=== PATIENT | male | born 1980 | race American Indian/Alaskan Native ===

== ENCOUNTER 2020-07-21 05:13 | Observation (INO) | payer OTHER ==
[2020-07-21] MEDS ORDERED: ONDANSETRON 4 MG/2 ML INJ ONE (05:27)
[2020-07-21] MEDS ORDERED: ONDANSETRON 4 MG/2 ML INJ IV ONE (05:31)
[2020-07-21] MEDS ORDERED: DEXTROSE 50% IN WATER (25GM) 50 ML SYRINGE IV ONE ×2 (06:09→07:30)
--- NOTE | 2020-07-21 06:36 | Emergency Department Report ---
ED General Adult HPI - General Chief complaint: Hypoglycemia Stated complaint: HYPOGLYCEMIA Time Seen by Provider: 07/21/20 06:08 Source: patient, EMS Mode of arrival: Stretcher Limitations: No Limitations - History of Present Illness Initial comments: Patient is a 40-year-old male with a past medical history of hypertension, diabetes and end-stage renal disease who is presenting with hypoglycemia. Patient gets dialysis on Wednesday and Wednesday. Patient blood glucose was 13 at his home. Patient had lost consciousness. Patient does take long-acting insulin. Patient was given 2 A of D50 prior to his arrival medicine glucose is still 40 at the time of my exam. Patient is alert oriented although he is speaking slowly. Patient's states he has been eating less lately. Patient did not give a reason for this. Is denying fevers chills cough cold congestion nausea vomiting. - Related Data Allergies Allergy/AdvReac Type Severity Reaction Status Date / Time vancomycin AdvReac Unknown Verified 07/21/20 05:30 ED Review of Systems ROS: Stated complaint: HYPOGLYCEMIA Other details as noted in HPI Comment: All other systems reviewed and negative ED Past Medical Hx - Past Medical History Previous Medical History?: Yes Hx Diabetes: Yes Hx Kidney Stones: Yes (dialysis t--wed) - Surgical History Past Surgical History?: Yes Additional Surgical History: BKA left - Social History Smoking Status: Never Smoker Substance Use Type: None ED Physical Exam - General Limitations: No Limitations General appearance: alert, in no apparent distress - Head Head exam: Present: atraumatic, normocephalic - Eye Eye exam: Present: normal appearance - ENT ENT exam: Present: mucous membranes moist - Neck Neck exam: Present: normal inspection - Respiratory Respiratory exam: Present: normal lung sounds bilaterally. Absent: respiratory distress, wheezes, rales, rhonchi - Cardiovascular Cardiovascular Exam: Present: regular rate, normal rhythm, normal heart sounds. Absent: systolic murmur, diastolic murmur, rubs, gallop - GI/Abdominal GI/Abdominal exam: Present: soft, normal bowel sounds. Absent: distended, tenderness, guarding, rebound - Rectal Rectal exam: Present: deferred - Extremities Exam Extremities exam: Present: normal inspection - Back Exam Back exam: Present: normal inspection - Neurological Exam Neurological exam: Present: alert, oriented X3 - Psychiatric Psychiatric exam: Present: normal affect, normal mood - Skin Skin exam: Present: warm, dry, intact, normal color. Absent: rash ED Course Vital Signs 07/21/20 07/21/20 07/21/20 05:20 06:00 06:30 Temperature 92.1 F L 93.8 F L Pulse Rate 75 72 Respiratory 14 9 L Rate Blood Pressure 155/91 152/93 Blood Pressure 155/91 [Left] O2 Sat by Pulse 100 98 Oximetry 07/21/20 07/21/20 07:29 08:00 Temperature 94 F L Pulse Rate 71 71 Respiratory 18 10 L Rate Blood Pressure 152/91 Blood Pressure 152/93 [Left] O2 Sat by Pulse 97 97 Oximetry ED Medical Decision Making - Lab Data Result diagrams: 07/21/20 06:40 07/21/20 06:40 Critical Care Time: Yes (30) Critical care attestation.: If time is entered above; I have spent that time in minutes in the direct care of this critically ill patient, excluding procedure time. ED Disposition Clinical Impression: Hypoglycemia, Accidental hypothermia, ESRD (end stage renal disease) Disposition: OP ADMIT IP TO THIS HOSP Is pt being admited?: Yes Does the pt Need Aspirin: No Condition: Stable Time of Disposition: 08:41
[2020-07-21 06:54] LABS: Basophils % (Auto) 0.3 % (0.0-1.8); Eosinophils # (Auto) 0.1 K/mm3 (0.0-0.4); Eosinophils % (Auto) 1.4 % (0.0-4.3); Hematocrit 30.8 % (35.5-45.6); Hemoglobin 9.7 gm/dl (11.8-15.2); Lymphocytes # (Auto) 0.9 K/mm3 (1.2-5.4); Lymphocytes % (Auto) 12.4 % (13.4-35.0); Mean Corpuscular HGB Conc 31 % (32-34); Mean Corpuscular Volume 85 fl (84-94); Monocytes # (Auto) 0.3 K/mm3 (0.0-0.8); Monocytes % (Auto) 4.8 % (0.0-7.3); Platelet Count 247 K/mm3 (140-440); Red Blood Count 3.61 M/mm3 (3.65-5.03)
[2020-07-21 06:57] LABS: Red Cell Distribution Width 20.4 % (13.2-15.2)
[2020-07-21] MEDS ORDERED: D5W/0.9% NACL 1,000 ML IV SCH (07:00)
[2020-07-21 09:46] VITALS: BP 144/93
[2020-07-21] MEDS ORDERED: DEXTROSE 5% IN WATER 1,000 ML IV SCH (10:00)
--- NOTE | 2020-07-21 10:03 | History and Physical Report ---
History of Present Illness Date of examination: 07/21/20 Date of admission: 07/21/20 09:28 Chief complaint: hypoglycemia History of present illness: Patient is a 40-year-old male with a past medical history of hypertension, diabetes and end-stage renal disease who is presenting with hypoglycemia. Patient gets dialysis on Wednesday and Wednesday. He is from [place] and visiting friends in this area. patient's blood glucose was 13 at his home. Patient had lost consciousness. Patient does take long-acting insulin, Levemir 20 units at at bedtime and also sliding scale coverage.. Patient was given 2 Amp. of D50 prior to his arrival. Blood glucose went up to 130 but then dropped to 25. He was given another D50 and the blood glucose again went up to 130 but after a while it again dropped to 51 and was given 1 more ample of D50. Patient received a total of 4 ampoules of D50W. He is being admitted for overnight observation due to recurrent hypoglycemic episodes .patient is alert oriented at the time of my evaluation. patient's states he has been eating less lately. Patient did not give a reason for this. Denies fevers chills cough cold congestion nausea vomiting, chest pain or shortness of breath. Past History Past Medical History: diabetes, ESRD, hypertension Past Surgical History: Other (Left BKA) Social history: no significant social history. denies: smoking, alcohol abuse Family history: diabetes, hypertension Medications and Allergies Allergies Allergy/AdvReac Type Severity Reaction Status Date / Time vancomycin AdvReac Unknown Verified 07/21/20 05:30 Active Meds: Active Medications Dextrose (D5w) 1,000 mls @ 50 mls/hr IV DIRECT MARJORIE Review of Systems Constitutional: fatigue, weakness, other (Feels tired), no weight loss, no fever, no chills Ears, nose, mouth and throat: no ear pain, no ear discharge, no sore throat, no headache, no vertigo Cardiovascular: syncope (History of loss of consciousness during hypoglycemic episode), high blood pressure, no chest pain, no palpitations Respiratory: no cough, no shortness of breath Gastrointestinal: no abdominal pain, no nausea, no vomiting, no diarrhea, no constipation, no melena Genitourinary Male: no dysuria Rectal: no pain Musculoskeletal: muscle weakness, no low back pain, no muscle cramps Integumentary: no rash, no redness Neurological: no head injury, no seizures Psychiatric: no anxiety, no depression Endocrine: no polyphagia, no polydipsia, no polyuria, no palpatations Exam - Constitutional Vitals: Temp Pulse Resp BP Pulse Ox 94 F L 74 11 L 144/93 97 07/21/20 07:29 07/21/20 09:15 07/21/20 09:15 07/21/20 09:15 07/21/20 09:15 General appearance: Present: no acute distress, well-nourished - EENT Eyes: Present: PERRL, EOM intact ENT: hearing intact, clear oral mucosa - Neck Neck: Present: supple, normal ROM. Absent: masses or JVD - Respiratory Respiratory effort: normal Respiratory: bilateral: CTA - Cardiovascular Rhythm: regular Heart Sounds: Present: S1 & S2 - Extremities Extremity abnormal: edema (Right leg and left BKA) - Abdominal General gastrointestinal: Present: soft, non-tender. Absent: hepatomegaly, splenomegaly Male genitourinary: Present: deferred - Rectal Rectal Exam: deferred - Integumentary Integumentary: Present: clear - Psychiatric Psychiatric: appropriate mood/affect - Neurologic Neurologic: no focal deficits HEART Score - HEART Score Age: < 45 Risk factors: 1-2 risk factors - Critical Actions Critical Actions: 0-3 pts:0.9-1.7%risk of adverse cardiac event.Candidate for discharge Results - Labs CBC & Chem 7: 07/21/20 06:40 07/21/20 06:40 Labs: Abnormal lab results 07/21/20 07/21/20 07/21/20 Range/Units 05:35 06:21 06:40 RBC 3.61 L (3.65-5.03) M/mm3 Hgb 9.7 L (11.8-15.2) gm/dl Hct 30.8 L (35.5-45.6) % MCH 27 L (28-32) pg MCHC 31 L (32-34) % RDW 20.4 H (13.2-15.2) % Lymph % (Auto) 12.4 L (13.4-35.0) % Lymph # (Auto) 0.9 L (1.2-5.4) K/mm3 Seg Neutrophils % 81.1 H (40.0-70.0) % BUN (9-20) mg/dL Creatinine (0.8-1.3) mg/dL Glucose (75-100) mg/dL POC Glucose 69 L 47 L (70-105) mg/dL Calcium (8.4-10.2) mg/dL 07/21/20 07/21/20 Range/Units 06:40 06:59 RBC (3.65-5.03) M/mm3 Hgb (11.8-15.2) gm/dl Hct (35.5-45.6) % MCH (28-32) pg MCHC (32-34) % RDW (13.2-15.2) % Lymph % (Auto) (13.4-35.0) % Lymph # (Auto) (1.2-5.4) K/mm3 Seg Neutrophils % (40.0-70.0) % BUN 24 H (9-20) mg/dL Creatinine 6.6 H (0.8-1.3) mg/dL Glucose 65 L (75-100) mg/dL POC Glucose 57 L (70-105) mg/dL Calcium 8.0 L (8.4-10.2) mg/dL Assessment and Plan - Patient Problems (1) Hypertension Current Visit: Yes Status: Chronic Qualifiers: Hypertension type: essential hypertension Qualified Code(s): I10 - Essential (primary) hypertension Plan to address problem: BP well controlled Continue home medications (2) Anemia in chronic kidney disease, on chronic dialysis Current Visit: Yes Status: Chronic Plan to address problem: No overt bleed Monitor H&H (3) Diabetes mellitus, insulin dependent (IDDM), controlled Current Visit: Yes Status: Chronic Plan to address problem: Hold basal insulin Initiate insulin sliding scale coverage (4) Accidental hypothermia Current Visit: Yes Status: Acute Plan to address problem: Patient initially was noted to have a temperature of 92.4 and was started on Bear hugger At the time of my evaluation his temperature went up to 97.4 Unclear etiology No signs or symptoms of sepsis Likely secondary to severe hypoglycemia (5) ESRD (end stage renal disease) Current Visit: Yes Status: Chronic Plan to address problem: Patient is on hemodialysis on Wednesday and Wednesday His last hemodialysis was on He is not volume overloaded at this time He denies any shortness of breath We will request nephrology consult (6) Hypoglycemia Current Visit: Yes Status: Acute Plan to address problem: Iatrogenic secondary to insulin administration patient takes Levemir insulin 20 units at bedtime and also is on insulin sliding scale coverage Apparently he took 13 units of NovoLog insulin this morning Discussed with patient about decreasing the Levemir insulin dose Will initiate insulin sliding scale coverage and hold basal insulin Patient was noted by EMS to have a blood sugar of 13 2 Amps of D50 were given and the blood sugar went up to 130 However blood sugar dropped to 25 and another amp of D50 brought the sugar to 134 It again went down to 51 We will start the patient on D50 water at 50 cc/h as the patient has end-stage renal disease Start on ADA diet His blood sugars since then have been stabilized We will admit the patient on observation status for overnight observation
[2020-07-21] MEDS ORDERED: DEXTROSE 50% IN WATER (25GM) 50 ML SYRINGE IV PRN (10:17)
[2020-07-21] MEDS ORDERED: ONDANSETRON 4 MG/2 ML INJ IV PRN (10:17)
[2020-07-21] MEDS ORDERED: ACETAMINOPHEN 325 MG TAB PO PRN (10:17)
[2020-07-21] MEDS ORDERED: INSULIN LISPRO 100 UNIT/ML VIAL 3 mL SUB-Q SCH (22:00)
--- NOTE | 2020-07-22 19:19 | Discharge Summary ---
Providers - Providers Date of Admission: 07/21/20 09:28 Date of discharge: 07/21/20 Attending physician: REYES MOSLEY 07/21/20 10:21 Consult to Physician [CONS] Routine Comment: Consulting Provider: JANET YOU Physician Instructions: Reason For Exam: ESRD Primary care physician: [facility] Hospitalization Condition: Stable Disposition: DC-07 LEFT AGAINST MED ADVICE Time spent for discharge: 32 min - Discharge Diagnoses (1) Hypertension Status: Chronic Qualifiers: Hypertension type: essential hypertension Qualified Code(s): I10 - Essential (primary) hypertension (2) Anemia in chronic kidney disease, on chronic dialysis Status: Chronic (3) Diabetes mellitus, insulin dependent (IDDM), controlled Status: Chronic (4) Accidental hypothermia Status: Acute (5) ESRD (end stage renal disease) Status: Chronic (6) Hypoglycemia Status: Acute Core Measure Documentation - Palliative Care Palliative Care/ Comfort Measures: Not Applicable - Core Measures Any of the following diagnoses?: none Exam - Constitutional Vitals: Temp Pulse Resp BP Pulse Ox 94 F L 74 11 L 144/93 97 07/21/20 07:29 07/21/20 09:15 07/21/20 09:15 07/21/20 09:15 07/21/20 09:15 General appearance: Present: no acute distress - EENT Eyes: Present: PERRL, EOM intact ENT: hearing intact - Neck Neck: Present: supple, normal ROM - Respiratory Respiratory effort: normal Respiratory: bilateral: CTA - Cardiovascular Rhythm: regular Heart Sounds: Present: S1 & S2 - Extremities Extremity abnormal: edema (celeste. 1+ leg edema) - Abdominal General gastrointestinal: Present: soft, non-tender - Psychiatric Psychiatric: appropriate mood/affect - Neurologic Neurologic: moves all extremities Plan Activity: other (left AMA) Follow up with: PRIMARY CARE, [Primary Care Provider] - 3-5 Days
== END 2020-07-21 10:10 | disposition left against medical advice (07) ==
LOC: ED 05:13 → 4A 09:28
PROVIDERS: ADMIT Internal Medicine Cardiovascular Disease; ATTEND Internal Medicine Cardiovascular Disease
DX: I12.0 Hypertensive chronic kidney disease with stage 5 chronic kidney disease or end stage renal disease (principal); N18.6 End stage renal disease; E11.22 Type 2 diabetes mellitus with diabetic chronic kidney disease; T68.XXXA Hypothermia, initial encounter; E11.649 Type 2 diabetes mellitus with hypoglycemia without coma; D63.1 Anemia in chronic kidney disease; Z99.2 Dependence on renal dialysis; Z98.890 Other specified postprocedural states
CPT/HCPCS: 36415; 80048; 82962; 83036; 85025; 96361; 96374; 96375; 96376; 99291; G0378; J2405; J7042